=== PATIENT | female | born 1980 | race Caucasian/White ===

== ENCOUNTER 2022-04-04 07:14 | Day surgery (SDC) | payer OTHER | END 2022-04-04 18:40 | disposition home or self-care (01) | LOC: CIR.AMB 07:14 | PROVIDERS: ATTEND Obstetrics & Gynecology Gynecology | DX: N93.9 Abnormal uterine and vaginal bleeding, unspecified (principal); N84.0 Polyp of corpus uteri; Z86.16 Personal history of COVID-19 ==

== ENCOUNTER 2024-06-04 09:12 | Outpatient (CLI) | payer OTHER | END 2024-06-04 09:13 | disposition home or self-care (01) | LOC: SONOGRAMA 09:12 | PROVIDERS: ATTEND Obstetrics & Gynecology Reproductive Endocrinology | DX: N93.8 Other specified abnormal uterine and vaginal bleeding (principal) ==